=== PATIENT | male | born 1970 | race Caucasian/White ===

== ENCOUNTER 2019-09-01 10:00 | Outpatient (AMBR) | payer MEDICAID, SELFPAY ==
--- NOTE | 2019-08-11 12:53 | PT.ODAYNRPT ---
PT Outpatient Daily Note Date of Service: August 11, 2019 OP Daily Note Visit Reasons: right knee pain Outpatient Physical Therapy Treatment Date: 08/11/19 Subjective: pt states his knee is bothering him today but also had complaints of the low back from post surgery earlier this year. Objective: see flow sheet. Assessment: pt was having discomfort and fatigue during ther ex and was advised to sit and rest. pt does ambulate with AD. no thera band used today during standing ther ex. clam shells in sitting with thera band in which he completed well. good quad contraction during SLR also in sitting. pt refused ice pack post ther ex. Plan: continue POC per PT. Length of Time (minutes) of Treatment: 30 Minutes Office Procedures PT Procedures PT Date of Service: 08/11/19 Therapeutic Exercise 30 minutes: Yes
--- NOTE | 2019-08-13 10:58 | PT.ODAYNRPT ---
PT Outpatient Daily Note Date of Service: August 13, 2019 OP Daily Note Visit Reasons: right knee pain Outpatient Physical Therapy Treatment Date: 08/13/19 Subjective: Pt mention that his knee is doing okay. Objective: Please see flow chart for list of ther ex perfromed Assessment: tolerate exercises with minimal pain; difficulty with SLR + ER due to weakness Plan: Continue with PT Length of Time (minutes) of Treatment: 30 Minutes Office Procedures PT Procedures PT Date of Service: 08/11/19 Therapeutic Exercise 30 minutes: Yes PT Procedures PT Date of Service: 08/13/19 Therapeutic Exercise 30 minutes: Yes
--- NOTE | 2019-08-18 10:24 | PT.ODAYNRPT ---
PT Outpatient Daily Note Date of Service: August 18, 2019 OP Daily Note Visit Reasons: right knee pain Outpatient Physical Therapy Treatment Date: 08/18/19 Subjective: pt states his low back pain was not letting him sleep well last night although he does take pain meds. Objective: see flow sheet. Assessment: added thera band for BLE strengthening exercises inside the PB in which he tolerated well. he was able to control his speed and had good posture during the reps. added calf stretch in standing against the step. added balance exercises using the foam pad in which he was a little unstable at first but improved his stability towards the end of reps. Plan: continue POC per PT. Length of Time (minutes) of Treatment: 30 Minutes Office Procedures PT Procedures PT Date of Service: 08/11/19 Therapeutic Exercise 30 minutes: Yes PT Procedures PT Date of Service: 08/18/19 Therapeutic Exercise 30 minutes: Yes PT Procedures PT Date of Service: 08/13/19 Therapeutic Exercise 30 minutes: Yes
--- NOTE | 2019-08-20 13:07 | PT.ODAYNRPT ---
PT Outpatient Daily Note Date of Service: August 20, 2019 OP Daily Note Visit Reasons: right knee pain Outpatient Physical Therapy Treatment Date: 08/20/19 Subjective: Pt mention that his knee is feeling so-so. Pt still has knee pain. Objective: Please see flow chart for list of ther ex performed Assessment: difficulty with squatting exercise due to bilateral knee pain; only perform 10 reps. Pt performed all other exercises with good tolerance. Plan: Continue with PT Length of Time (minutes) of Treatment: 30 Minutes Office Procedures PT Procedures PT Date of Service: 08/11/19 Therapeutic Exercise 30 minutes: Yes PT Procedures PT Date of Service: 08/18/19 Therapeutic Exercise 30 minutes: Yes PT Procedures PT Date of Service: 08/20/19 Therapeutic Exercise 30 minutes: Yes PT Procedures PT Date of Service: 08/13/19 Therapeutic Exercise 30 minutes: Yes
--- NOTE | 2019-08-25 10:32 | PT.ODAYNRPT ---
PT Outpatient Daily Note Date of Service: August 25, 2019 OP Daily Note Visit Reasons: right knee pain Outpatient Physical Therapy Treatment Date: 08/25/19 Subjective: Pt's knee is sore today. Pt does feel a little better. Objective: Please see flow chart for list of ther ex performed Assessment: slight difficulty with steps due to pain but able to resume. Plan: Continue with PT Length of Time (minutes) of Treatment: 30 Minutes Office Procedures PT Procedures PT Date of Service: 08/11/19 Therapeutic Exercise 30 minutes: Yes PT Procedures PT Date of Service: 08/18/19 Therapeutic Exercise 30 minutes: Yes PT Procedures PT Date of Service: 08/20/19 Therapeutic Exercise 30 minutes: Yes PT Procedures PT Date of Service: 08/13/19 Therapeutic Exercise 30 minutes: Yes PT Procedures PT Date of Service: 08/25/19 Therapeutic Exercise 30 minutes: Yes
--- NOTE | 2019-08-27 12:16 | PT.ODAYNRPT ---
PT Outpatient Daily Note Date of Service: August 27, 2019 OP Daily Note Visit Reasons: right knee pain Outpatient Physical Therapy Treatment Date: 08/27/19 Subjective: Pt's knee feels okay. Pt will like to continue PT after his one authorized visit. Objective: Please see flow chart for list of ther ex performed Assessment: tolerate exercises with minimal pain Plan: Continue with PT Length of Time (minutes) of Treatment: 30 Minutes Office Procedures PT Procedures PT Date of Service: 08/11/19 Therapeutic Exercise 30 minutes: Yes PT Procedures PT Date of Service: 08/18/19 Therapeutic Exercise 30 minutes: Yes PT Procedures PT Date of Service: 08/20/19 Therapeutic Exercise 30 minutes: Yes PT Procedures PT Date of Service: 08/27/19 Therapeutic Exercise 30 minutes: Yes PT Procedures PT Date of Service: 08/13/19 Therapeutic Exercise 30 minutes: Yes PT Procedures PT Date of Service: 08/25/19 Therapeutic Exercise 30 minutes: Yes
--- NOTE | 2019-09-01 12:46 | PT.ODAYNRPT ---
PT Outpatient Daily Note Date of Service: September 01, 2019 OP Daily Note Visit Reasons: right knee pain Outpatient Physical Therapy Treatment Date: 09/01/19 Subjective: P's knee feels better but still notice some morning stiffness and difficulty with prolonged activities. Objective: Please see flow chart for list of ther ex performed Assessment: tolerate exercises with minimal pain; cues to correct wall squat Plan: Continue with PT Length of Time (minutes) of Treatment: 30 Minutes Office Procedures PT Procedures PT Date of Service: 08/11/19 Therapeutic Exercise 30 minutes: Yes PT Procedures PT Date of Service: 08/18/19 Therapeutic Exercise 30 minutes: Yes PT Procedures PT Date of Service: 08/20/19 Therapeutic Exercise 30 minutes: Yes PT Procedures PT Date of Service: 08/27/19 Therapeutic Exercise 30 minutes: Yes PT Procedures PT Date of Service: 08/13/19 Therapeutic Exercise 30 minutes: Yes PT Procedures PT Date of Service: 08/25/19 Therapeutic Exercise 30 minutes: Yes PT Procedures PT Date of Service: 09/01/19 Therapeutic Exercise 30 minutes: Yes
== END 2019-09-09 23:59 | disposition home or self-care (01) ==
PROVIDERS: PCP Family Medicine; Referring Provider Family Medicine; Visit Provider Family Medicine
DX: Z98.890 Other specified postprocedural states (principal); M25.561 Pain in right knee; R53.1 Weakness; M66.9 Spontaneous rupture of unspecified tendon; M23.91 Unspecified internal derangement of right knee
CPT/HCPCS: 97110

== ENCOUNTER → 2024-06-27 | Day surgery (SDC) | payer MEDICAID, SELFPAY ==
--- NOTE | 2024-06-26 10:38 | EKG_ITS ---
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
[2024-06-26 11:17] VITALS: BMI 37.3
[2024-06-26 12:15] LABS: Basophils % (Auto) 0 % (0-2.5); Eosinophils % (Auto) 1 % (0-10); Hemoglobin 14.1 g/dL (13.5-16.0); Immature Granulocytes % (Auto) 0 % (0-0); Immature Granulocytes Auto 0.03 Thou/mm3 (0.00-0.00); Lymphocytes # (Auto) 1.2 Thou/mm3 (1.0-4.8); Lymphocytes % (Auto) 17 % (10-50); Mean Corpuscular HGB Conc 33.6 g/dl (31.0-37.0); Mean Corpuscular Hemoglobin 31.3 pg (25.0-35.0); Mean Corpuscular Volume 93 fL (80-100); Monocytes # (Auto) 0.5 Thou/mm3 (0.0-0.8); Monocytes % (Auto) 7 % (0-12); Neutrophils # (Auto) 5.4 Thou/mm3 (1.8-7.7); Neutrophils % (Auto) 75 % (37-80); Nucleated Red Blood Cell % 0 /100 WBC (0); Platelet Count 273 Thou/mm3 (140-440); RDW Standard Deviation 49.7 fL (35.1-43.9); Red Blood Count 4.51 Miln/mm3 (4.50-5.90); White Blood Count 7.3 Thou/mm3 (3.8-10.6)
[2024-06-26 12:28] LABS: Alanine Aminotransferase 25 U/L (10-49); Albumin/Globulin Ratio 2.4 (1.2-2.2); Alkaline Phosphatase 61 U/L (46-116); Anion Gap 6 (7-16); Aspartate Amino Transferase 21 U/L (0-34); BUN/Creatinine Ratio 11 Ratio (12-20); Bilirubin,Total 0.6 mg/dL (0.3-1.2); Blood Urea Nitrogen 9 mg/dL (9-23); Calcium 10.6 mg/dL (8.3-10.6); Calcium (Corrected) 10.6 mg/dL (8.5-10.1); Carbon Dioxide 33.9 mMol/L (20.0-31.0); Chloride 99 mMol/L (98-107); Creatinine (Component) 0.8 mg/dL (0.6-1.3); Estimated Creatinine Clearance 144.2 mL/min (>60); Globulin 2.1 gm/dL (2.3-3.5); Glucose 88 mg/dL (74-106); Osmolality,Calculated 275 (275-295); Partial Thromboplastin Time 25.4 Seconds (22.0-36.0); Potassium 3.2 mMol/L (3.4-5.1); Prothrombin Time 11.4 Seconds (9.0-12.2); Sodium 139 mMol/L (136-145); Total Protein 7.1 gm/dL (5.7-8.2); eGFR > 60 See Note
--- NOTE | 2024-06-26 12:45 | ESHP_ITS ---
RE: LUCIA TAYLOR : 1970 DATE OF ADMISSION: 06/27/2024 The patient came to my office on 06/26/2024 for detailed preoperative history and physical examination. HISTORY OF PRESENTING COMPLAINT: The patient has got significant pain in the right knee joint. Pain is quite bad and it interferes with his routine daily activities. The patient was treated conservatively for a long period of time. The patient graded intensity of pain to be 8-9/10. The patient used to weight 328 pounds when I saw him in July of 2023. The patient was advised to reduce weight and he has reduced close to 50 pounds of weight. However, the intensity of the pain remains the same. The patient wants something to be done about it. The patient is unable to sleep. Besides that the patient is unable to do household work. His quality of life is affected. PAST MEDICAL HISTORY: The patient has history of high blood pressure and asthma. No history of diabetes mellitus, seizure, chest pain, myocardial infarction, or bleeding disorder. PAST SURGICAL HISTORY: Include hernia operation, 2 right shoulder surgery 4 years back, left shoulder surgery 4 years back. The patient has had back surgery, right knee arthroscopy, right carpal tunnel release and also gastric bypass surgery in 2002. DRUG HISTORY: The patient is on gabapentin, Flexeril, hydromorphone and hydrocodone. The patient has stated that he takes hydrocodone 10/325 three times a day. Besides that the patient takes Naprosyn, which he stopped. The patient is also on allopurinol, amlodipine and doxazosin. The patient is also on vitamins. ALLERGIES: PENICILLIN. FAMILY HISTORY AND SOCIAL HISTORY: The patient denies smoking, drinking, is not working. PHYSICAL EXAMINATION: GENERAL: Normal built person. VITAL SIGNS: Pulse 85 per minute, blood pressure 150/92. NECK: Soft, supple. No mass felt. Trachea is centrally placed. CARDIOVASCULAR: First and second heart sounds normal. No murmur heard. LUNGS: Bilateral vesicular breath sounds. CHEST: Clear. ABDOMEN: Soft. No mass felt. Bowel sounds present. RECTAL: Her rectal exam is not indicated in this case. The patient is advised to see the family physician for rectal examination. Extremities: Right knee examination revealed mild swelling. There is 2+ tenderness. Active range of motion 0-120 degrees of flexion. The patient walks with significant limp. There is a genu varum deformity. Neurovascularly, it is intact. DIAGNOSTIC DATA: X-ray of the right knee joint revealed moderately severe degenerative joint disease changes of the right knee joint. ASSESSMENT AND PLAN: Since the patient has significant osteoarthritic changes, therefore, right total knee replacement was discussed. It is to be noted that the patient has reduced by 50 pounds or so. The patient's lab work was also checked. The patient's HB A1c is 5.[address] Shore's reports. Risk with anesthesia was explained and that includes, but not limited to reaction to anesthetic agents, cardiac arrest and rarely it might be fatal. Risk with operation includes infection, and if that happens, the patient may need further surgical procedure. Other risks include delayed healing, wound dehiscence, etc. No guarantee is given regarding outcome of the procedure and/or relief of symptoms and the patient is fully aware of that. The patient was sent to Dr. Shore and he has cleared him for surgical procedure. Detailed discussion took place regarding the pain management. The patient is on pain medication for a long period of time. Besides that, he is taking multiple medications. I explained to him that after the surgical procedure, there is significant chance that the patient may feel significant pain and that is basically the perception as the patient is taking too many pain medication for too long. I also explained that one cannot keep on increasing the pain medication as it compromises the respiratory center and cardiac center and could be life threatening. The patient is fully aware of that. The patient was also explained that there is a possibility that pain may be felt by the patient may be too much and he should be prepared for that and the patient is fully aware of that. Detailed discussion took place. Possibility of blood transfusion was discussed as well. Detailed discussion took place regarding the blood transfusion as well. The patient stated that he will take the blood when it is absolutely necessary. Accordingly, surgery is booked for 06/27/2024. Appropriate lab work was done. DT: 11:52:16 TT: 12:34:00 Ref: [id number] - TID: [id number]
--- NOTE | 2024-06-26 14:39 | SUR.PREOP ---
Cardiac records reviewed with Dr Mullins.
[2024-06-27 09:30] VITALS: BP 131/71; PULSE 72; RESP 18; TEMP 37; O2SAT 95; BMI 36.5
--- NOTE | 2024-06-27 09:30 | CHAP ---
Patient expressed gratitude for prayer before their procedure.
== END | disposition home or self-care (01) ==
LOC: S2EX 08:44
PROVIDERS: Anesthesiology; PCP Family Medicine; Referring Provider Orthopaedic Surgery; Visit Provider Orthopaedic Surgery
PROC: (CPT 27447; principal; 2024-06-27 10:15)
DX: S83.241A Other tear of medial meniscus, current injury, right knee, initial encounter (principal); Z53.9 Procedure and treatment not carried out, unspecified reason
CPT/HCPCS: 27447; 36415; 80053; 85025; 85610; 85730; 86850; 86900; 86901; 86923; 93005; J0131; J0690; J1100; J1580; J2250; J2704; J2795; J3010; J3490

== ENCOUNTER 2025-06-25 10:23 | Emergency (ER) | payer MEDICAID, SELFPAY ==
[2025-06-25 10:35] VITALS: BP 174/80; PULSE 77; RESP 19; TEMP 37.1; O2SAT 95; BMI 33.7
[2025-06-25] MEDS: DIPHTH,PERTUSS(ACELL),TET VAC 0.5 ML SYR- ADULT IMi (11:12)
[2025-06-25] MEDS: LIDOCAINE HCL 1% 20 ML VIAL INFL (11:14)
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
== END 2025-06-25 12:55 | disposition home or self-care (01) ==
PROVIDERS: Emergency Provider Family Medicine; PCP Family Medicine
DX: S81.811A Laceration without foreign body, right lower leg, initial encounter (principal); W45.8XXA Other foreign body or object entering through skin, initial encounter
CPT/HCPCS: 12002; 90471; 90715; 99283; J3490

== ENCOUNTER 2025-07-10 07:53 | Emergency (ER) | payer MEDICAID, SELFPAY ==
[2025-07-10 08:02] VITALS: BP 140/81; PULSE 72; RESP 18; TEMP 36.5; O2SAT 96; BMI 37.4
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
== END 2025-07-10 08:34 | disposition home or self-care (01) ==
LOC: SERX 08:39
PROVIDERS: Emergency Provider Emergency Medicine
DX: Z48.02 Encounter for removal of sutures (principal)
CPT/HCPCS: 99281